=== PATIENT | female | born 2000 | race Caucasian/White ===

== ENCOUNTER 2020-12-06 16:50 | Emergency (ER) | payer OTHER ==
[~2020-12-06 16:50] MED LIST: BENTYL 20MG TAB20 MG PO; IRON325 M1 PO; REGLAN10 MG PO
== END 2020-12-06 18:25 | disposition home or self-care (01) ==
LOC: ER1 16:50
DX: O21.9 Vomiting of pregnancy, unspecified (principal); Z88.2 Allergy status to sulfonamides; Z3A.00 Weeks of gestation of pregnancy not specified; Z53.21 Procedure and treatment not carried out due to patient leaving prior to being seen by health care provider
CPT/HCPCS: 99283

== ENCOUNTER 2021-03-29 15:39 | Emergency (ER) | payer OTHER ==
[2021-03-29 17:02] LABS: HEMOGLOBIN 10.5 gm/dl (12.3-15.3); RED BLOOD COUNT 4.06 M/UL (4.00-5.10); WHITE BLOOD COUNT 4.4 K/UL (4.5-11.0)
[2021-03-29 17:34] LABS: BUN/CREATININE RATIO 16 (0-10)
[2021-03-29] MEDS ORDERED: VENTOLIN HFA 66.7 GM INH (18:26)
[2021-03-29] MEDS ORDERED: ZITHROMAX250 MG PO (18:26)
== END 2021-03-29 19:10 | disposition home or self-care (01) ==
LOC: ER1 15:39
PROVIDERS: Physician Assistant Medical
DX: O98.512 Other viral diseases complicating pregnancy, second trimester (principal); O99.512 Diseases of the respiratory system complicating pregnancy, second trimester; U07.1 COVID-19; Z3A.24 24 weeks gestation of pregnancy
CPT/HCPCS: 0240U; 71045; 80053; 85025; 96374; 99283; J1100

== ENCOUNTER 2021-05-13 03:36 | Observation (INO) | payer OTHER ==
[~2021-05-13] VITALS: Ht 162.6 cm; Wt 68.5 kg
[~2021-05-13 03:36] MED LIST changes: +VENTOLIN HFA 66.7 GM INH; +ZITHROMAX250 MG PO
[2021-05-13 04:32] LABS: HEMOGLOBIN 10.5 gm/dl (12.3-15.3); RED BLOOD COUNT 4.25 M/UL (4.00-5.10); WHITE BLOOD COUNT 9.9 K/UL (4.5-11.0)
[2021-07-10] MEDS ORDERED: DOCUSATE SODIU100 MG PO (15:37)
[2021-07-10] MEDS ORDERED: IBUPROFEN800 MG PO (15:37)
== END 2021-05-14 09:05 | disposition home or self-care (01) ==
LOC: GENOP 03:36 → OB 06:40
PROVIDERS: ADMIT Obstetrics & Gynecology
DX: O46.93 Antepartum hemorrhage, unspecified, third trimester (principal); O60.03 Preterm labor without delivery, third trimester; O36.0930 Maternal care for other rhesus isoimmunization, third trimester, not applicable or unspecified; Z3A.30 30 weeks gestation of pregnancy
CPT/HCPCS: 36415; 80307; 81001; 83518; 85025; 85384; 86850; 86900; 86901; 96360; 96361; 96372; 96374; 96375; C9113; G0378; J0702; J2300; J2790; J3105

== ENCOUNTER 2021-05-15 14:39 | Outpatient (CLI) | payer OTHER | END 2021-05-15 16:10 | disposition home or self-care (01) | LOC: GENOP 14:39 | DX: O36.8120 Decreased fetal movements, second trimester, not applicable or unspecified (principal); Z3A.22 22 weeks gestation of pregnancy | CPT/HCPCS: 59025 ==

== ENCOUNTER 2021-07-09 17:17 | Inpatient (IN) | payer OTHER ==
[~2021-07-09] VITALS: Ht 162.6 cm; Wt 78.9 kg
[2021-07-09 17:55] LABS: HEMOGLOBIN 10.6 gm/dl (12.3-15.3); RED BLOOD COUNT 4.59 M/UL (4.00-5.10); WHITE BLOOD COUNT 7.7 K/UL (4.5-11.0)
[2021-07-10] MEDS ORDERED: DOCUSATE SODIU100 MG PO (15:37)
[2021-07-10] MEDS ORDERED: IBUPROFEN800 MG PO (15:37)
[2021-07-11 07:04] LABS: HEMOGLOBIN 8.6 gm/dl (12.3-15.3)
[2021-07-11] MEDS ORDERED: FERROUS FUMARA324 MG PO (12:13)
== END 2021-07-11 17:08 | disposition home or self-care (01) | DRG 807 ==
LOC: GENOP 17:17 → OB 17:34
PROVIDERS: Obstetrics & Gynecology; ADMIT Obstetrics & Gynecology
PROC: 4A1HXCZ Monitoring of Products of Conception, Cardiac Rate, External Approach (ICD-10-PCS; 2021-07-09)
PROC: 10E0XZZ Delivery of Products of Conception, External Approach (ICD-10-PCS; principal; 2021-07-10)
PROC: 10907ZC Drainage of Amniotic Fluid, Therapeutic from Products of Conception, Via Natural or Artificial Opening (ICD-10-PCS; 2021-07-10)
PROC: 0UQMXZZ Repair Vulva, External Approach (ICD-10-PCS; 2021-07-10)
DX: O70.0 First degree perineal laceration during delivery (principal); Z37.0 Single live birth; Z3A.38 38 weeks gestation of pregnancy; Z20.822 Contact with and (suspected) exposure to COVID-19
CPT/HCPCS: 51702; 81001; 82800; 85014; 85018; 85025; 86900; 86901; J2405; J2590; J7120; U0003